=== PATIENT | female | born 1950 | race Hispanic/Latino ===

== ENCOUNTER → 2017-03-30 | Outpatient (CLI) | payer MEDICARE ==
[~2017-03-30] MED LIST: ASPI-555 PO; CLON0.3T PO; FURO40TA5 PO; INSLAN SQ; METF10004 PO; NPH,100V SQ; OMEP20CA10 PO; PARO-66 PO; ROSU20TA PO; [UNRECOGNIZED DRUG - CODE] PO; valsartan PO
[2017-03-30 15:48] LABS: CREATININE 0.9 mg/dL (0.5-1.5)
== END ==
LOC: LAB 14:46
PROVIDERS: ATTEND Family Medicine
DX: R52 Pain, unspecified (principal)
CPT/HCPCS: 36415; 82565; 84520

== ENCOUNTER → 2020-01-08 | Outpatient (CLI) | payer MEDICARE ==
[~2020-01-08] MED LIST changes: -ASPI-555 PO; +ASPI-556 PO; +METF-446 PO; -METF10004 PO; -OMEP20CA10 PO; +OMEP20CA12 PO; -ROSU20TA PO; +ROSU20TA23 PO
== END | disposition home or self-care (01) ==
LOC: SHCH 13:36
PROVIDERS: ATTEND Internal Medicine Cardiovascular Disease
DX: I87.2 Venous insufficiency (chronic) (peripheral) (principal); Z95.5 Presence of coronary angioplasty implant and graft
CPT/HCPCS: 93925; 93970

== ENCOUNTER → 2020-09-10 | Outpatient (CLI) | payer MEDICARE | END | disposition home or self-care (01) | LOC: RAH 12:09 | PROVIDERS: ATTEND Internal Medicine | DX: U07.1 COVID-19 (principal); R91.8 Other nonspecific abnormal finding of lung field; I51.9 Heart disease, unspecified | CPT/HCPCS: 71045 ==

== ENCOUNTER → 2020-11-22 | Outpatient (CLI) | payer MEDICARE | END | disposition home or self-care (01) | LOC: SHCH 08:34 | PROVIDERS: ATTEND Internal Medicine Cardiovascular Disease | DX: I87.2 Venous insufficiency (chronic) (peripheral) (principal) | CPT/HCPCS: 93971 ==

== ENCOUNTER → 2021-04-06 | Outpatient (CLI) | payer MEDICARE | END | disposition home or self-care (01) | LOC: SHCH 10:06 | PROVIDERS: ATTEND Internal Medicine Cardiovascular Disease | DX: I87.2 Venous insufficiency (chronic) (peripheral) (principal) | CPT/HCPCS: 93970 ==

== ENCOUNTER → 2021-04-28 | Outpatient (CLI) | payer MEDICARE | END | disposition home or self-care (01) | LOC: OIH 11:43 | PROVIDERS: ATTEND Internal Medicine | DX: S32.018A Other fracture of first lumbar vertebra, initial encounter for closed fracture (principal); M47.26 Other spondylosis with radiculopathy, lumbar region; M48.061 Spinal stenosis, lumbar region without neurogenic claudication; I70.0 Atherosclerosis of aorta; M25.552 Pain in left hip; W19.XXXA Unspecified fall, initial encounter; Y93.89 Activity, other specified; Y92.89 Other specified places as the place of occurrence of the external cause; Y99.8 Other external cause status | CPT/HCPCS: 72100; 73502 ==

== ENCOUNTER → 2024-02-11 | Outpatient (CLI) | payer MEDICARE, OTHER ==
[~2024-02-11] MED LIST changes: +PARO-149 PO; -PARO-66 PO
--- NOTE | 2024-02-11 15:12 | HMCIMG ---
LUMBAR SPINE 2-3VWS HISTORY: Back pain COMPARISON: None FINDINGS: 3 images of lumbar spine were obtained. Grade 1 anterolisthesis is seen at the L4-5 level. Grade 1 retrolisthesis is seen at the L2-3 level. Endplate degenerative changes with disc space narrowing are seen at L1-2, L2-3, L4-5 and L5-S1 levels. Vascular calcifications are seen. There is straightening of normal lordotic curvature which may be related to muscle spasm or positioning. No loss of vertebral height is seen. No fracture or dislocation is seen. Degenerative changes are seen. IMPRESSION: 1. Findings as described above.
== END | disposition home or self-care (01) ==
LOC: RAH 13:57
PROVIDERS: ATTEND Internal Medicine
DX: M47.817 Spondylosis without myelopathy or radiculopathy, lumbosacral region (principal); M48.07 Spinal stenosis, lumbosacral region; M43.16 Spondylolisthesis, lumbar region; I70.90 Unspecified atherosclerosis; M53.3 Sacrococcygeal disorders, not elsewhere classified
CPT/HCPCS: 72100

== ENCOUNTER → 2024-04-22 | Outpatient (CLI) | payer MEDICARE, OTHER ==
--- NOTE | 2024-04-22 14:59 | HMCIMG ---
MRI RIGHT SHOULDER WITHOUT CONTRAST INDICATION: Right shoulder pain after fall COMPARISON: None PARAMETERS: Long and short axis fat and water weighted sequences were obtained through the right shoulder. FINDINGS: Diagnostic sensitivity of this examination is significantly limited by patient motion artifact. Mild rotator cuff peritendinitis without discrete partial or full-thickness rotator cuff tear within the limits of this exam. No rotator cuff muscle atrophy, fatty infiltration, or denervation myoedema noted. Trace subacromial bursal fluid. Mild to moderate acromioclavicular joint osteoarthropathy includes inferior juxta-articular spurring and secondary moderate medial arch outlet narrowing. Mild anterolateral downsloping of a type II acromion and suspect extremely subtle miniscule inferior acromial spurring contributing to mild lateral arch narrowing. Glenohumeral alignment is well maintained, and nominal inferior glenohumeral joint osteoarthropathy noted. Glenoid concavity is well preserved without "bare area" erosion. No displaced labral tear noted. Long head biceps tendon is intact, and not subluxed. Trace glenohumeral joint fluid detected. No abnormal soft tissue mass, ganglion, or paralabral cyst is present. No no evidence for fracture. IMPRESSION: Significant motion limitations as reported. Moderate AC joint arthrosis and trace subacromial bursitis contributing to moderate medial arch outlet narrowing and perhaps secondary mild rotator cuff peritendinitis without partial or full-thickness tear within the limits of this exam. If clinical suspicion persists, further evaluation with MR arthrogram is recommended.
== END | disposition home or self-care (01) ==
LOC: RAH 12:35
PROVIDERS: ATTEND Internal Medicine
DX: M19.011 Primary osteoarthritis, right shoulder (principal); M75.40 Impingement syndrome of unspecified shoulder
CPT/HCPCS: 73221